=== PATIENT | female | born 1955 | race African-American/Black ===

== ENCOUNTER → 2017-08-24 | Outpatient (CLI) | payer OTHER, MEDICAID | END | disposition home or self-care (01) | LOC: KCIC DEXA 09:08 | DX: Z13.820 Encounter for screening for osteoporosis (principal); M85.88 Other specified disorders of bone density and structure, other site; Z78.0 Asymptomatic menopausal state | CPT/HCPCS: 77080 ==

== ENCOUNTER → 2018-04-04 | Outpatient (CLI) | payer OTHER, MEDICAID ==
[2016-11-10 11:00] VITALS: BP 126/74
[~2018-04-04] MED LIST: AMLO5TAB7 PO; CETI10TA22 PO; DULO60CA6 PO; ESTR1VAG VG; FERR325T58 PO; FEXO180T16 PO; FLUT9.9S NS; GABA-586 PO; GABA600T2 PO; HYDR-2762 PO; IRBE1TAB5 PO; MULT-208 PO; NAPR500T8 PO; NORT10CA PO; OMEP20TA8 PO; OXYC-323 PO; POTA10TA12 PO; PROP80CA3 PO; SIMV20TA3 PO; SUMA100T4 PO; TIZA4TAB PO; WARF1TAB74 PO
--- NOTE | 2018-04-04 14:04 | RAD ---
DATE: 04/04/2018 EXAM: MAMMO CRISTOPHER SCREENING BILATERAL HISTORY: Routine screening COMPARISON: 04/14/2017 This study was interpreted with the benefit of Computerized Aided Detection (CAD). Breast Density: SCATTERED The breast parenchyma shows scattered fibroglandular densities. Breast parenchyma level B. FINDINGS: 2-D and 3-D tomosynthesis imaging was performed in CC and MLO projections. No new or enlarging breast densities are seen. Minimal benign type calcification is present. No suspicious microcalcifications have developed. IMPRESSION: Stable mammograms without evidence of malignancy. BI-RADS CATEGORY: 2 BENIGN FINDING(S) RECOMMENDED FOLLOW-UP: 12M 12 MONTH FOLLOW-UP PQRS compliance statement: Patient information was entered into a reminder system with a target due date for the next mammogram. Mammography is a sensitive method for finding small breast cancers, but it does not detect them all and is not a substitute for careful clinical examination. A negative mammogram does not negate a clinically suspicious finding and should not result in delay in biopsying a clinically suspicious abnormality. "Our facility is accredited by the [employer] Mammography Program."
== END | disposition home or self-care (01) ==
LOC: MAMMO 09:57
PROVIDERS: ATTEND Physician Assistant Surgical
DX: Z12.31 Encounter for screening mammogram for malignant neoplasm of breast (principal)
CPT/HCPCS: 77063; 77067

== ENCOUNTER → 2019-04-08 | Outpatient (CLI) | payer OTHER ==
[2016-11-10 11:00] VITALS: BP 126/74
[~2019-04-08] MED LIST changes: +AMLO5TAB10 PO; -AMLO5TAB7 PO; -GABA-586 PO; +GABA300C18 PO; -GABA600T2 PO; +GABA600T7 PO; -HYDR-2762 PO; +HYDR-2765 PO; -OXYC-323 PO; +OXYC1TAB15 PO; -TIZA4TAB PO; +TIZA4TAB2 PO
--- NOTE | 2019-04-09 15:41 | RAD ---
DATE: 04/08/2019 EXAM: MAMMO CRISTOPHER SCREENING BILATERAL HISTORY: Routine screening COMPARISON: 04/14/2017 and 04/04/2018 mammographic exams This study was interpreted with the benefit of Computerized Aided Detection (CAD). Breast Density: SCATTERED The breast parenchyma shows scattered fibroglandular densities. Breast parenchyma level B. FINDINGS: No masses or distortion. No suspicious calcification. IMPRESSION: Stable BI-RADS CATEGORY: 1 NEGATIVE RECOMMENDED FOLLOW-UP: 12M 12 MONTH FOLLOW-UP PQRS compliance statement: Patient information was entered into a reminder system with a target due date for the next mammogram. Mammography is a sensitive method for finding small breast cancers, but it does not detect them all and is not a substitute for careful clinical examination. A negative mammogram does not negate a clinically suspicious finding and should not result in delay in biopsying a clinically suspicious abnormality. "Our facility is accredited by the [employer] Mammography [employer]."
== END | disposition home or self-care (01) ==
LOC: MAMMO 08:25
PROVIDERS: ATTEND Family Medicine
DX: Z12.31 Encounter for screening mammogram for malignant neoplasm of breast (principal)
CPT/HCPCS: 77063; 77067

== ENCOUNTER → 2020-04-09 | Outpatient (CLI) | payer MEDICARE, MEDICAID ==
[2016-11-10 11:00] VITALS: BP 126/74
[~2020-04-09] MED LIST changes: +AMLO-186 PO; -AMLO5TAB10 PO; -CETI10TA22 PO; +CETI10TA74 PO; -POTA10TA12 PO; +POTASSIUM CHLO10 ME1 PO; +SIMV20TA18 PO; -SIMV20TA3 PO; +WARF1TAB2 PO; -WARF1TAB74 PO
--- NOTE | 2020-04-10 13:16 | RAD ---
DATE: 04/09/2020 10:41 AM EXAM: MAMMO CRISTOPHER SCREENING BILATERAL HISTORY: Screening COMPARISON: 04/08/2019, 04/04/2018 Bilateral CC and MLO views of the breasts were performed. Bilateral breast tomosynthesis was performed in CC and MLO projections. This study was interpreted with the benefit of Computerized Aided Detection (CAD). FINDINGS: Breast Density: SCATTERED The breast parenchyma shows scattered fibroglandular densities. Breast parenchyma level B No suspicious masses, microcalcifications or architectural distortion is present to suggest malignancy in either breast. The visualized axillae are unremarkable. IMPRESSION: No mammographic evidence of malignancy. BI-RADS CATEGORY: 1 NEGATIVE RECOMMENDED FOLLOW-UP: 12M 12 MONTH FOLLOW-UP Annual screening mammography is recommended, unless clinically indicated sooner based on symptoms or change in physical exam. PQRS compliance statement: Patient information was entered into a reminder system with a target due date for the next mammogram. Mammography is a sensitive method for finding small breast cancers, but it does not detect them all and is not a substitute for careful clinical examination. A negative mammogram does not negate a clinically suspicious finding and should not result in delay in biopsying a clinically suspicious abnormality. "Our facility is accredited by the [employer] Mammography Program."
== END ==
LOC: MAMMO 10:35
PROVIDERS: ATTEND Family Medicine
DX: Z12.31 Encounter for screening mammogram for malignant neoplasm of breast (principal)
CPT/HCPCS: 77063; 77067

== ENCOUNTER → 2020-10-28 | Outpatient (CLI) | payer MEDICARE, MEDICAID ==
[2016-11-10 11:00] VITALS: BP 126/74
[~2020-10-28] MED LIST changes: +CALC-71 PO; +CHOL10004 PO; +LORA10TA3 PO; +MAGN250T10 PO; +OLME1TAB25 PO; +PANT40TA77 PO; +RIBO100T PO; +UBRO50TA PO
--- NOTE | 2020-10-28 13:38 | EKG ---
[facility] [address] [place] [address] Test Date: 2020-10-28 Test Time: 13:35:51 Pat Name: KRYSTAL NGUYEN Department: Room: Gender: F Photography Spotter: SRIDHAR : 1955 Requested By: NICOLE SANTOS Order Number: [id number] Reading MD: Vernon Russo MD Measurements Intervals [place] Rate: 68 P: 46 PA: 168 QRS: 0 QRSD: 90 T: 34 QT: 442 QTc: 470 Interpretive Statements SINUS RHYTHM Electronically Signed On 10-29-2020 10:46:28 CDT by Vernon Russo MD
[2020-10-28 15:01] LABS: BASO # 0.1 x10^3/uL (0.0-0.2); BASO % 1 % (0-3); EOS # 0.3 x10^3/uL (0.0-0.7); EOS % 3 % (0-3); HEMATOCRIT 39.3 % (36.0-47.0); LYMPH # 2.2 x10^3/uL (1.0-4.8); LYMPH % 23 % (24-48); MEAN CORPUSCULAR HEMOGLOBIN 31 pg (25-35); MEAN CORPUSCULAR HGB CONC 33 g/dL (31-37); MEAN CORPUSCULAR VOLUME 93 fL (79-100); MONO # 0.9 x10^3/uL (0.0-1.1); MONO % 9 % (0-9); NEUT # 6.3 x10^3/uL (1.8-7.7); NEUT % 65 % (31-73); PLATELET COUNT 373 x10^3/uL (140-400); RED BLOOD COUNT 4.24 x10^6/uL (3.50-5.40); RED CELL DISTRIBUTION WIDTH 13.6 % (11.5-14.5); WHITE BLOOD COUNT 9.7 x10^3/uL (4.0-11.0)
[2020-10-28 15:13] LABS: PROTHROMBIN TIME PATIENT 12.5 SEC (11.7-14.0)
[2020-10-28 15:27] LABS: ALBUMIN 3.8 g/dL (3.4-5.0); C-REACTIVE PROTEIN 2.6 mg/L (0-3.3); CALCIUM 9.6 mg/dL (8.5-10.1); GFR 67.1; POTASSIUM 3.7 mmol/L (3.5-5.1)
--- NOTE | 2020-10-28 16:23 | RAD ---
AP and Lateral Views of the Chest 10/28/2020 1:52 PM Indication: Reason: pre op. right hip total replacement scheduled 11/10. Instructions: / Histo ry: Comparison: None Findings: There are linear opacities in the left lung base suggestive of discoid atelectasis. No pneu mothorax is identified. Calcified granuloma noted in the right upper lung. Heart size is normal. No a cute osseous changes are identified. IMPRESSION: Mild left basilar atelectasis. Electronically signed by: Wilian Miller MD (10/28/2020 4:21 PM) [id number]
== END ==
LOC: SURGPAT 12:13
PROVIDERS: ATTEND Orthopaedic Surgery
DX: Z01.818 Encounter for other preprocedural examination (principal); M16.11 Unilateral primary osteoarthritis, right hip; J98.11 Atelectasis; Z96.641 Presence of right artificial hip joint
CPT/HCPCS: 36415; 71046; 80048; 82040; 82306; 83036; 85025; 85610; 85730; 86140; 87641; 93005

== ENCOUNTER → 2020-11-05 | Outpatient (CLI) | payer MEDICARE, MEDICAID ==
[2016-11-10 11:00] VITALS: BP 126/74
[~2020-11-05] MED LIST changes: +BACI3.5O8 OS; +MELO15TA23 PO; +WARF-31 PO
== END ==
LOC: LAB 09:38
PROVIDERS: ATTEND Orthopaedic Surgery
DX: Z01.812 Encounter for preprocedural laboratory examination (principal); Z20.822 Contact with and (suspected) exposure to COVID-19; M16.11 Unilateral primary osteoarthritis, right hip
CPT/HCPCS: U0003; U0005

== ENCOUNTER 2020-11-10 09:52 | Observation (INO) | payer MEDICARE, MEDICAID ==
[2020-10-28 13:16] VITALS: BP 145/92
[~2020-11-10] VITALS: Ht 160 cm; Wt 81.6 kg
[2020-11-10] VITALS (9 sets, daily range): BP systolic 117–160; BP diastolic 65–97
[~2020-11-10 09:52] MED LIST changes: +ACETAMINOPHEN 500 MG TABLET PO PRN; -BACI3.5O8 OS; +CLINDAMYCIN 900MG PREMIX 50 ML IV PRN; +DEXAMETHASONE SOD PHOS 4 MG/ML VIAL ONE; +GABAPENTIN 300 MG CAPSULE. PO PRN; +HYDROmorphone 2 MG/ML VIAL IVP PRN; +IV RINGERS,LACTATED 1000ML 1,000 ML IV SCH; +LIDOCAINE 2% PF 5 ML VIAL. ONE; -MELO15TA23 PO; +MORPHINE SULFATE 5 MG, KETOROLAC 30MG VIAL 30 MG, ROPIVacaine 0.5% PF 60 ML, EPINEPHrin... INT ART ONE; +ONDANSETRON PF 4 MG/2 ML VIAL. ONE; +PROCHLORPERAZINE 10 MG/2 ML VIAL. IVP PRN; +PROPOFOL 10 MG/ML (20ML) VIAL. IV ONE; +TRANEXAMIC ACID in NS IVPB 100 ML ONE; +TRANEXAMIC ACID in NS IVPB 50 ML INJ ONE; +VANCOMYCIN 1GM IVPB FOR OMNI 250 ML IV PRN; -WARF-31 PO; +fentaNYL PF VIAL 100 MCG/2 ML VIAL IVP PRN
[2020-11-10] MEDS ORDERED: MELO15TA23 PO (10:13)
[2020-11-10] MEDS ORDERED: WARF-31 PO (10:13)
[2020-11-10] MEDS ORDERED: BACI3.5O8 OS (10:14)
[2020-11-10] MEDS: MELOXICAM 7.5 MG TABLET PO PRN ×2 (10:31→18:07)
[2020-11-10 10:45] LABS: PROTHROMBIN TIME PATIENT 12.8 SEC (11.7-14.0)
[2020-11-10] MEDS ORDERED: MORPHINE SULFATE 2 MG/ML VIAL. IVP PRN (11:00)
[2020-11-10] MEDS ORDERED: UBROGEPANT 50 MG PO PRN (11:00)
[2020-11-10] MEDS ORDERED: NON FORMULARY ITEM (Meloxicam 1 TAB) PO SCH (11:00)
[2020-11-10] MEDS ORDERED: fentaNYL PF VIAL 100 MCG/2 ML VIAL IVP PRN (11:00)
[2020-11-10] MEDS: IV NORMAL SALINE 1000ML BAG 1,000 ML IV SCH (11:00)
[2020-11-10] MEDS ORDERED: CALCIUM CARBONATE 500 MG TAB.CHEW PO PRN (11:00)
[2020-11-10] MEDS ORDERED: diphenhydrAMINE 50 MG/ML VIAL IVP PRN (11:00)
[2020-11-10] MEDS ORDERED: DEXTROSE 50% 25 GM / 50ML DISP.SYRIN. IV PRN (11:00)
[2020-11-10] MEDS ORDERED: 0.9 % SODIUM CHLORIDE 10 ML DISP.SYRIN. IV PRN (11:00)
[2020-11-10] MEDS ORDERED: PROCHLORPERAZINE 5 MG TABLET. PO PRN (11:00)
[2020-11-10] MEDS ORDERED: ZOLPIDEM 5 MG TABLET. PO PRN (11:00)
[2020-11-10] MEDS ORDERED: VANCOMYCIN 1 GM VIAL. ONE (11:24)
[2020-11-10] MEDS: ONDANSETRON ODT 4 MG TAB.RAPDIS. PO SCH ×2 (12:00→18:00)
--- NOTE | 2020-11-10 12:45 | PREOP HP ---
DATE OF SERVICE: 11/10/2020 CHIEF COMPLAINT: Right hip pain. HISTORY OF PRESENT ILLNESS: The patient is a 65-year-old female who has had about a 3-year history of right hip pain, getting worse in the groin, severely affecting her activities of daily living. She has had some ongoing left knee pain as well status post knee arthroplasty and subsequent revision by Dr. Briggs and now the hip really severely affects her activities of daily living and particularly feels like she is compensating somewhat for the hip, making the already painful knee worse. PAST MEDICAL HISTORY: Significant for hypertension, hypercholesterolemia, osteoarthritis, headaches including migraine and osteopenia. PAST SURGICAL HISTORY: Left knee replacement and revision. FAMILY HISTORY: Several healthy siblings. Father is . Mother is alive and well. SOCIAL HISTORY: Denies smoking, alcohol or drug use. She is . Does have children. MEDICATIONS: List is reviewed. ALLERGIES: SHE LISTS AN ALLERGY TO PENICILLIN, WHICH GAVE HER SICK TO HER STOMACH. REVIEW OF SYSTEMS: Denies any chest pain, shortness of breath, focal weakness, numbness, tingling, recent febrile illness or other constitutional symptoms. Significant really for the ongoing worsening right hip pain and also ongoing left knee pain despite a previous total knee. IMPRESSION: 1. Primary osteoarthritis, right hip. 2. Left knee pain and history of total left knee replacement. TREATMENT PLAN: I went over with her and reviewed the risks, benefits, postoperative course of a total hip arthroplasty including the possibility of infection, nerve or blood vessel damage, leg length inequality, instability, medical or other anesthetic complications among others. All her questions were answered. She wishes to proceed with surgical evaluation and treatment, which will include [facility] observation to follow. GLORIA/YONATHAN/ASHLY DR: Lance TID: [id number]
[2020-11-10] MEDS ORDERED: ePHEDrine PF IN SALINE 50 MG/10 ML SYRINGE. IV ONE (12:53)
[2020-11-10] MEDS ORDERED: fentaNYL PF VIAL 100 MCG/2 ML VIAL ONE (13:09)
[2020-11-10] MEDS: GABAPENTIN 300 MG CAPSULE. PO SCH ×2 (14:00→20:51)
[2020-11-10] MEDS ORDERED: ALBUTEROL SULFATE 8GM INHALER. INH ONE (14:28)
[2020-11-10] MEDS ORDERED: SEVOFLURANE > 120 MINUTES. IH ONE (15:05)
[2020-11-10] MEDS ORDERED: MORPHINE SULFATE 2 MG/ML VIAL. ONE (15:27)
[2020-11-10] MEDS ORDERED: PROCHLORPERAZINE 10 MG/2 ML VIAL. ONE (15:27)
[2020-11-10] MEDS: MORPHINE SULFATE 2 MG/ML VIAL. IVP PRN ×2 (15:29→15:40)
[2020-11-10] MEDS ORDERED: HYDROmorphone 2 MG/ML VIAL ONE (15:45)
[2020-11-10] MEDS ORDERED: WARFARIN 7.5 MG TABLET. PO ONE (16:00)
--- NOTE | 2020-11-10 16:23 | NUR ---
Arrived to unit by bed from PACU. Alert and oriented x's 4. No c/o at this time. Right hip GAIL dressing d/i. Pedal pulses + bilaterally, warm touch and able to move lower extremities. IVF's intact and infusing. SCD's on bilaterally. Oriented to room and controls. Side rails up x's 2 with call light in reach. Daughter at bedside. Cont. monitor.
[2020-11-10] MEDS: FERROUS SULFATE 325 MG TABLET. PO SCH (17:47)
[2020-11-10] MEDS: ONDANSETRON PF 4 MG/2 ML VIAL. IVP SCH ×2 (17:48→18:00)
[2020-11-10] MEDS: oxyCODONE IR 5 MG TABLET PO PRN ×2 (17:53→22:01)
[2020-11-10] MEDS: SIMVASTATIN 20 MG TABLET PO SCH (20:51)
[2020-11-10] MEDS: tiZANidine 4 MG TABLET. PO SCH (20:51)
[2020-11-10] MEDS: NORTRIPTYLINE 25 MG CAPSULE PO SCH (20:51)
--- NOTE | 2020-11-10 22:12 | PDOC4 ---
Operative Note Operative Note Date of surgery: 11/10/2020 Preoperative diagnosis: Degenerative joint disease right hip Postoperative diagnosis: Same Operative procedure: Right total hip arthroplasty with anterior approach Surgeon Becky Object Oriented Developer: Ramirez brownlee Anesthesia: General Estimated blood loss: 250 cc Complications: None Drains: None Operative indications: Please see my orthopedic clinic note and dictated history and physical for detailed operative indications and note that we covered risks benefits postoperative course of the procedure. All her questions were answered and she wishes to proceed with surgical evaluation and treatment having given informed consent Operative text: Patient was identified procedure verified patient placed in the supine position on the [place] fracture table after adequate amounts of general ane sthesia were administered. All bony prominences were well-padded and right hip was prepped and draped in the standard sterile fashion. After timeout was performed patient procedure identified and verified an incision was made just distal to the anterior superior iliac spine running along the tensor fascia dat for a distance of about 4 inches. Fascia was incised tensor fascia dat was taken laterally and circumflex vessels were located and coagulated and the anterior capsule was exposed with the rectus femoris gently retracted medially along with the underlying fascia that was dissected free. Capsule was split in a T-shaped incision and superior aspect of the capsule was excised and further superior release was carried out with the hip in external rotation. Hip was returned to 40 degrees external rotation and a napkin ring cut was made with an Avenir Michael broach for reference napkin ring was removed and femoral head was removed and sized. Reaming was carried out from a size 43 to a size 49 with a size 50 Biomet G7 acetabular shell was placed in proper version under fluoroscopic guidance and placement of a single superiorly directed screw with excellent fixation to supplement the scratch fit. A 36 mm vitamin E liner was impacted into place. Femur was brought into maximum external rotation extension and adduction and release was carried out at the 11 o'clock position to free up the femur and retractors were placed medially and above the greater trochanter for maximum femoral exposure box osteotome was used along with the rattail rasp and successive size broaching up to a size 3 which provided excellent stability and fit within the canal. Calcar reaming was carried out and trial fitting with a +0 36 mm head to reproduce leg length and offset appropriately under fluoroscopic guidance. Trial components were removed and a size 3 standard offset collared Avenir stem was impacted into place with a +0 ceramic 36 mm head. Excellent stability and range of motion were noted and leg length reproduced as much as possible according to measurements from the contralateral side. Thorough irrigation carried out with dilute Betadine solution and then washed further with normal saline solution and pulse lavage. Intra-articular mixture was injected subperiosteally throughout the joint capsule and subcutaneous areas and 1 g vancomycin sprinkled throughout the joint capsule area. Fascia was closed with #1 PDS strata fix suture in a running fashion subcutaneous closure with buried Vicryl skin closure with subcuticular Monocryl and a lv dressing was applied. Patient was returned to recovery room in stable condition having tolerated the procedure well. Ramirez brownlee was present for the procedure and assisted in the patient positioning prepping draping retraction closure and dressings NICOLE SANTOS MD November 10, 2020 22:12
[2020-11-11] MEDS ORDERED: VANCOMYCIN 1 GM in IV NORMAL SALINE 250ML 250 ML IV ONE (01:00)
[2020-11-11 04:04] VITALS: BP 138/91
[2020-11-11] MEDS: oxyCODONE IR 5 MG TABLET PO PRN ×4 (04:09→20:47)
[2020-11-11 05:18] VITALS: BP 104/54
[2020-11-11 05:53] VITALS: BP 109/67
[2020-11-11] MEDS: ONDANSETRON ODT 4 MG TAB.RAPDIS. PO SCH ×2 (05:56)
[2020-11-11] MEDS: traMADol 50 MG TABLET PO SCH ×4 (05:56→23:32)
[2020-11-11] MEDS: PANTOPRAZOLE 40 MG TABLET.DR. PO SCH (05:57)
[2020-11-11] MEDS: ONDANSETRON PF 4 MG/2 ML VIAL. IVP SCH ×2 (05:57)
[2020-11-11] MEDS ORDERED: GABAPENTIN 100 MG CAPSULE. PO SCH (06:00)
[2020-11-11] MEDS ORDERED: MAGNESIUM HYDROXIDE 2,400 MG/30 ML ORAL.SUSP. PO PRN (06:00)
[2020-11-11] MEDS: ACETAMINOPHEN 500 MG TABLET PO SCH ×3 (07:37→20:47)
[2020-11-11 07:50] LABS: PROTHROMBIN TIME PATIENT 16.2 SEC (11.7-14.0)
[2020-11-11] MEDS: CETIRIZINE HCL 10 MG TABLET. PO SCH (08:11)
[2020-11-11] MEDS: LOSARTAN POTASSIUM 50 MG TABLET. PO SCH (08:11)
[2020-11-11] MEDS: GABAPENTIN 300 MG CAPSULE. PO SCH ×2 (08:11→15:18)
[2020-11-11] MEDS: hydroCHLOROthiazide 25 MG TABLET PO SCH (08:11)
[2020-11-11] MEDS: DULoxetine HCL 30 MG CAPSULE.DR PO SCH (08:11)
[2020-11-11] MEDS: amLODIPine BESYLATE 5 MG TABLET PO SCH (08:11)
[2020-11-11] MEDS: PROPRANOLOL ER 60 MG CAP.SA.24H. PO SCH (08:11)
[2020-11-11 08:12] LABS: HEMATOCRIT 32.4 % (36.0-47.0); HEMOGLOBIN 10.6 g/dL (12.0-15.5)
[2020-11-11] MEDS: MULTIVITAMIN with MINERAL TABLET. PO SCH (08:12)
[2020-11-11] MEDS: POTASSIUM CHLORIDE 10 MEQ TABLET.ER. PO SCH (08:12)
[2020-11-11] MEDS: MELOXICAM 7.5 MG TABLET PO SCH (08:13)
[2020-11-11] MEDS: FERROUS SULFATE 325 MG TABLET. PO SCH ×2 (08:13→17:00)
[2020-11-11] MEDS: SENNOSIDES/DOCUSATE 8.6/50MG TABLET. PO SCH (08:13)
[2020-11-11] MEDS: FLUTICASONE 50MCG/NASAL SPRAY 16GM BOTTLE. NS SCH (08:54)
[2020-11-11] MEDS ORDERED: NON FORMULARY ITEM (Multivitamin (Multi-Day Vitamins) 1 TAB) PO SCH (09:00)
--- NOTE | 2020-11-11 10:24 | NUR ---
Pharmacy Warfarin Dosing Note S:Pharmacy consulted to assist with anticoagulation therapy started 11/10/20 with target INR: 1.6 - 2.5 O:KRYSTAL NGUYEN is a 65 year old F with LARRY LABS: Last INR: 1.3 Last HGB: 10.6 Last HCT: 32.4 Last PLT: Last dose of 7.5 mg given on 11/10/20 at 1747 Previous Regimen: Vitamin K given: Drug Interaction Changes: Ongoing Drug Interactions: A:INR of 1.3 is below desired range. Target range for this patient is: 1.6 - 2.5 P: Warfarin dose: 5 mg Today at 1600 Bridge Therapy: None Next INR due 11/12/20. Pharmacy anticoagulation service will continue to follow. CHRISTINE MENA RPH, 11/11/20 [phone]
[2020-11-11] MEDS: IV NORMAL SALINE 1000ML BAG 1,000 ML IV SCH (11:00)
[2020-11-11] MEDS ORDERED: ONDANSETRON PF 4 MG/2 ML VIAL. IVP PRN (12:00)
[2020-11-11] MEDS ORDERED: ONDANSETRON ODT 4 MG TAB.RAPDIS. PO PRN (12:00)
[2020-11-11 12:30] VITALS: BP 106/67
--- NOTE | 2020-11-11 12:42 | NUR ---
SW following. Discussed with RN, pt from home alone, room air, regular diet. Therapy recommending home health. SW met with pt, pt agreeable to home health, would like [facility]. Lauren Newyb RN meeting with pt. Pt reported she has a walker, and has a ride home when it is time to discharge. KIM will continue to follow. Addendum: 11/11/20 at 1554 by MIL ALVAREZ Pt accepted with [facility]. Choice of vendor form completed.
--- NOTE | 2020-11-11 12:54 | PDOC ---
PROGRESS NOTES Date of Service DATE: 11/11/20 TIME: 12:52 Subjective Subjective Problems overnight: Says she is having less pain than before surgery and is pleased with her ability to get around. No current complaints pain well controlled Objective Vital Signs Vital Signs Date Time Temp Pulse Resp B/P (MAP) Pulse Ox O2 Delivery O2 Flow Rate FiO2 11/11/20 12:32 Room Air 11/11/20 05:56 18 96 11/11/20 05:53 98.3 71 109/67 (81) 98.3 11/10/20 15:29 10.0 Physical Exam Hip dressing clean dry intact leg lengths equal distal neurovascular status intact excellent range of motion and mobility Labs Laboratory Tests Test 11/10/20 10:25 11/11/20 06:25 Prothrombin Time 12.8 SEC (11.7-14.0) 16.2 SEC (11.7-14.0) Prothromb Time International Ratio 1.0 (0.8-1.1) 1.3 (0.8-1.1) Activated Partial Thromboplast Time 33 SEC (24-38) Hemoglobin 10.6 g/dL (12.0-15.5) Hematocrit 32.4 % (36.0-47.0) Mean Corpuscular Hemoglobin Concent 33 g/dL (31-37) Laboratory Tests Test 11/11/20 06:25 Hemoglobin 10.6 g/dL (12.0-15.5) Hematocrit 32.4 % (36.0-47.0) Mean Corpuscular Hemoglobin Concent 33 g/dL (31-37) Prothrombin Time 16.2 SEC (11.7-14.0) Prothromb Time International Ratio 1.3 (0.8-1.1) Imaging Intraoperative fluoroscopic views show excellent leg length offset and component placement Assessment Assessment POD#1 total hip arthroplasty Plan Plan of Care Continue weightbearing as tolerated mobilize with physical therapy Warfarin anticoagulation per [place] [facility] Likely home health on discharge Justicifation of Admission Dx: Justifications for Admission: Justification of Admission Dx: N/A NICOLE SANTOS MD November 11, 2020 12:54
[2020-11-11] MEDS ORDERED: BISACODYL 10 MG SUPP.RECT. PR PRN (16:00)
[2020-11-11] MEDS ORDERED: WARFARIN 5 MG TABLET. PO ONE (16:00)
[2020-11-11 18:00] VITALS: BP 94/60
[2020-11-11] MEDS: SIMVASTATIN 20 MG TABLET PO SCH (20:46)
[2020-11-11] MEDS: tiZANidine 4 MG TABLET. PO SCH (20:47)
[2020-11-11] MEDS: NORTRIPTYLINE 25 MG CAPSULE PO SCH (20:47)
[2020-11-12] MEDS: ACETAMINOPHEN 500 MG TABLET PO SCH ×3 (03:21→14:20)
[2020-11-12 05:53] VITALS: BP 96/70
[2020-11-12] MEDS: PANTOPRAZOLE 40 MG TABLET.DR. PO SCH (05:55)
[2020-11-12] MEDS: traMADol 50 MG TABLET PO SCH ×2 (05:56→12:18)
[2020-11-12] MEDS ORDERED: TRAM50TA PO (07:59)
[2020-11-12] MEDS ORDERED: OXYC5CAP PO (07:59)
--- NOTE | 2020-11-12 08:01 | SNU/HH DC ---
DISCHARGE WITH HOME HEALTH DISCHARGE INFORMATION: Discharge Date: November 12, 2020 Final Diagnosis: Status post total hip arthroplasty Condition on Discharge: Stable HOME HEALTH: Face to Face: I certify this patient is under my care and that I, or a nurse practitioner or physician's medical assistant ob gyn working with me, had a face to face encounter that meets the physician face to face encounter requirements with this patient on [11/12/20]. Detention For: Assess/Skilled Observatio RN For Eval/Treatment: Yes Physical Therapy For: Evalulation/Treatment Pt Meets Homebound Status: Limited distance walking POST DISCHARGE ORDERS: Activity Instructions for Disc: Activity as tolerated Weight Bearing Status after Di: As tolerated Bathing Instructions: Shower-keep dressing dry, No Tub Bath until see DIET AFTER DISCHARGE: Regular Wound/Incision Care: Ice to area for comfort, Keep wound elevated, Do not change dressing FOLLOW-UP: Follow up with: Dr. Pena or Dirk 2 weeks postop Warfarin Follow UP: [place] [facility] to direct dosage and testing TREATMENT/EQUIPMENT ORDERS: Adaptive Equipment Issued: None, Front wheeled walker CERTIFICATION STATEMENT: Certification Statement: Certification Statement: Based on the above finding, I certify that this patient is confined to the home and needs intermittent jail care, physical therapy and/or speech therapy, or continues to need occupational therapy.~ This patient is under my care, and I have initiated the establishment of the plan of care.~ This patient will be followed by myself or a community physician who will periodically review the plan of care. Home Meds Reported Medications Bacitracin (BACITRACIN) 3.5 Gm Oint...g., 1 NAYELY OS BID for mrsa pre op, #3.5 GM 11/10/20 Meloxicam (MELOXICAM) 15 Mg Tablet, 1 TAB PO ONCE for pre op for 30 Days, TAB 0 Refills 11/10/20 Warfarin Sodium (WARFARIN SODIUM) 5 Mg Tablet, 5 MG PO ONCE for pre op, #30 TAB 11/10/20 Ubrogepant (Ubrelvy) 50 Mg Tablet, 50 MG PO BID PRN for MIGRAINE HEADACHE, TAB 10/28/20 Calcium Carbonate/Vitamin D3 (CALCIUM 600 + VIT D CAPLET) 1 Each Tablet, 1 TAB PO DAILY for supplement for 30 Days, #30 TAB 0 Refills 10/28/20 Cholecalciferol (Vitamin D3) (Vitamin D3 ) 25 Mcg Tablet, 25 MCG PO DAILY for SUPPLEMENT, TAB 1,000 UNITS = 25 MCG 10/28/20 Riboflavin (RIBOFLAVIN) 100 Mg Tablet, 400 MG PO DAILY for vitamin, TAB 10/28/20 Magnesium Oxide (MAGNESIUM) 250 Mg Tablet, 1 TAB PO DAILY for supplement for 30 Days, #30 TAB 0 Refills 10/28/20 Pantoprazole Sodium (PANTOPRAZOLE SODIUM ) 40 Mg Tablet.dr, 20 MG PO DAILYAC for GERD, TAB 10/28/20 Olmesartan/Hydrochlorothiazide (BENICAR HCT 40-25 MG TABLET) 1 Each Tablet, 1 TAB PO DAILY for htn for 30 Days, #30 TAB 0 Refills 10/28/20 Multivitamin (MULTI-DAY VITAMINS) 1 Each Tablet, 1 TAB PO DAILY for vitamin supplement, #30 TAB LAST DOSE GIVEN: DATE:09-18-15 TIME:8:30 a.m. NEXT DOSE DUE: DATE:09-19-15 TIME:8:30 a.m. 11/13/14 Fexofenadine Hcl (FEXOFENADINE HCL) 180 Mg Tablet, 1 TAB PO DAILY for allergies , #30 TAB 5 Refills Not taken while in hosp. May resume at home as instructed 11/13/14 Amlodipine Besylate (AMLODIPINE BESYLATE) 5 Mg Tablet, 1 TAB PO DAILY for hypertension, #30 TAB 5 Refills Not given due to low blood pressure. Check blood pressure before taking if systolic below 100 do not take 11/13/14 Gabapentin (GABAPENTIN) 600 Mg Tablet, 0.5 TAB PO TID for nerve pain, #90 TAB 3 Refills LAST DOSE GIVEN: DATE:09-17-15 TIME:9:00 p.m. NEXT DOSE DUE: DATE:09-18-15 TIME:9:00 p.m. 11/13/14 Potassium Chloride (POTASSIUM CHLORIDE) 10 Meq Tablet.er, 1 TAB PO DAILY for potassium supplement, #90 TAB 1 Refill LAST DOSE GIVEN: DATE:09-18-15 TIME:8:30 a.m. NEXT DOSE DUE: DATE:09-19-15 TIME:8:30 a.m. 11/13/14 Fluticasone Propionate (Flonase Allergy Relief) 9.9 Ml Gonzales.susp, 9.9 ML NS DAILY for allergies Not taken while in hosp. May resume at home as instructed 11/13/14 Duloxetine Hcl (CYMBALTA) 60 Mg Capsule.dr, 1 CAP PO DAILY for antidepressant, #90 CAP 3 Refills LAST DOSE GIVEN: DATE:09-18-15 TIME:8:30 a.m. NEXT DOSE DUE: DATE:09-18-14 TIME:8:30 a.m. 11/13/14 Simvastatin (SIMVASTATIN) 20 Mg Tablet, 2 TAB PO QHS for high cholesterol, #30 TAB 5 Refills LAST DOSE GIVEN: DATE:09-17-15 TIME:9:00 p.m. NEXT DOSE DUE: DATE:09-19-15 TIME:9:00 p.m. 11/13/14 Tizanidine Hcl (TIZANIDINE HCL) 4 Mg Tablet, 1 TAB PO QHS for muscle relaxer, #30 TAB Not given while in hosp. May resume at home as directed 11/13/14 Nortriptyline Hcl (NORTRIPTYLINE HCL) 10 Mg Capsule, 75 MG PO HS for antidepressant, CAP LAST DOSE GIVEN: DATE:09-17-15 TIME:9:00 p.m. NEXT DOSE DUE: DATE:09-18-15 TIME:9:00 p.m. 11/13/14 Propranolol Hcl (PROPRANOLOL HCL) 80 Mg Cap.sa.24h, 120 MG PO DAILY for hypertension, CAP.SR Not given today due to low blood pressure. Check blood pressure before taking if systolic below 100 do not give. 11/13/14 NICOLE PENA MD November 12, 2020 08:01
[2020-11-12 08:16] LABS: PROTHROMBIN TIME PATIENT 22.5 SEC (11.7-14.0)
[2020-11-12] MEDS: FERROUS SULFATE 325 MG TABLET. PO SCH (08:17)
[2020-11-12] MEDS: MULTIVITAMIN with MINERAL TABLET. PO SCH (08:17)
[2020-11-12] MEDS: DULoxetine HCL 30 MG CAPSULE.DR PO SCH (08:17)
[2020-11-12] MEDS: CETIRIZINE HCL 10 MG TABLET. PO SCH (08:17)
[2020-11-12] MEDS: SENNOSIDES/DOCUSATE 8.6/50MG TABLET. PO SCH (08:17)
[2020-11-12] MEDS: POTASSIUM CHLORIDE 10 MEQ TABLET.ER. PO SCH (08:18)
[2020-11-12] MEDS: MELOXICAM 7.5 MG TABLET PO SCH (08:18)
[2020-11-12] MEDS: FLUTICASONE 50MCG/NASAL SPRAY 16GM BOTTLE. NS SCH (08:24)
[2020-11-12 09:00] VITALS: BP 95/62
[2020-11-12] MEDS: amLODIPine BESYLATE 5 MG TABLET PO SCH (09:00)
[2020-11-12] MEDS: hydroCHLOROthiazide 25 MG TABLET PO SCH (09:00)
[2020-11-12] MEDS: LOSARTAN POTASSIUM 50 MG TABLET. PO SCH (09:00)
[2020-11-12] MEDS: PROPRANOLOL ER 60 MG CAP.SA.24H. PO SCH (09:00)
[2020-11-12] MEDS: oxyCODONE IR 5 MG TABLET PO PRN ×2 (09:42→14:20)
--- NOTE | 2020-11-12 10:35 | NUR ---
Pharmacy Warfarin Dosing Note S:Pharmacy consulted to assist with anticoagulation therapy started 11/10/20 with target INR: 1.6 - 2.5 O:KRYSTAL NGUYEN is a 65 year old F with LARRY LABS: Last INR: 2.0 Last HGB: 10.6 Last HCT: 32.4 Last PLT: Last dose of 5 mg given on 11/11/20 at 1701 Previous Regimen: Vitamin K given: Drug Interaction Changes: Ongoing Drug Interactions: A:INR of 2.0 is within desired range. Target range for this patient is: 1.6 - 2.5 P: Warfarin dose: 2 mg Prior to Discharge Bridge Therapy: None Next INR due Monday, November 16 with Home health Pharmacy anticoagulation service will continue to follow. [facility]ERHANE [facility], 11/12/20 [id number]
[2020-11-12] MEDS: IV NORMAL SALINE 1000ML BAG 1,000 ML IV SCH (11:00)
[2020-11-12 11:32] LABS: HEMATOCRIT 31.1 % (36.0-47.0); HEMOGLOBIN 10.1 g/dL (12.0-15.5)
--- NOTE | 2020-11-12 11:55 | NUR ---
SW following. Discussed with RN, discharge paperwork for home with home health. Lauren Newby RN notified. Discharge order not in yet.
[2020-11-12] MEDS ORDERED: WARFARIN 2 MG TABLET. PO ONE (14:00)
--- NOTE | 2020-11-12 16:05 | NUR ---
Discharge instructions given with prescriptions. Answered questions and concerns. Verbalized understanding. Pt discharged home with home health. Escorted out by w/c and accompanied by son.
--- NOTE | 2020-11-14 08:14 | DS ---
DATE OF DISCHARGE: 11/12/2020 PRINCIPAL DIAGNOSIS: Degenerative joint disease, right hip. PROCEDURE: Right total hip arthroplasty, anterior. DISPOSITION: Home with home health.. DISPOSITION MEDICATIONS: Oxycodone 5 mg p.o. q.4 hours p.r.n. severe pain, tramadol 50 mg p.o. q.4 hours p.r.n. moderate pain, warfarin as directed by anticoagulation clinic, resume home medications. INSTRUCTION: Activity is weightbearing as tolerated, avoiding extremes of range of motion of the operative hip. Maintain GAIL dressing, call if saturated. BRIEF DESCRIPTION OF HOSPITAL COURSE: The patient underwent uncomplicated right total hip arthroplasty and got good initial postoperative pain relief and negotiated ambulation and transfers quite well with physical therapy and was discharged home with home health in stable condition. TRICIA DR: Lance TID: [id number]
== END 2020-11-12 16:05 | disposition home health service (06) ==
LOC: SURG 09:52 → 4 SOUTHEST 15:35
PROVIDERS: ADMIT Orthopaedic Surgery; ATTEND Orthopaedic Surgery
DX: M16.11 Unilateral primary osteoarthritis, right hip (principal); M25.562 Pain in left knee; I10 Essential (primary) hypertension; M85.80 Other specified disorders of bone density and structure, unspecified site; G43.909 Migraine, unspecified, not intractable, without status migrainosus; E78.00 Pure hypercholesterolemia, unspecified; Z96.641 Presence of right artificial hip joint; Z96.652 Presence of left artificial knee joint; Z79.899 Other long term (current) drug therapy; Z98.890 Other specified postprocedural states
CPT/HCPCS: 27130; 36415; 85014; 85018; 85610; 85730; 86850; 86900; 86901; 88304; 88311; 96365; 96366; 96367; 96375; 97116; 97150; 97162; 97166; 97530; 97535; A4213; A4930; A6223; A6258; A6402; A6550; C1755; C1776; G0378; G0379; J0171; J0690; J0780; J1100; J1170; J1885; J2270; J2405; J2704; J2795; J3010; J3370; J7050; 76000; A4223; J3490; J7030

== ENCOUNTER → 2021-04-12 | Outpatient (CLI) | payer MEDICARE, MEDICAID ==
[~2021-04-12] MED LIST changes: -ACETAMINOPHEN 500 MG TABLET PO PRN; +BACI3.5O8 OS; -CLINDAMYCIN 900MG PREMIX 50 ML IV PRN; -DEXAMETHASONE SOD PHOS 4 MG/ML VIAL ONE; -DULO60CA6 PO; +DULO60CA7 PO; -GABAPENTIN 300 MG CAPSULE. PO PRN; -HYDROmorphone 2 MG/ML VIAL IVP PRN; -IV RINGERS,LACTATED 1000ML 1,000 ML IV SCH; -LIDOCAINE 2% PF 5 ML VIAL. ONE; +MELO15TA23 PO; -MORPHINE SULFATE 5 MG, KETOROLAC 30MG VIAL 30 MG, ROPIVacaine 0.5% PF 60 ML, EPINEPHrin... INT ART ONE; -ONDANSETRON PF 4 MG/2 ML VIAL. ONE; +OXYC5CAP PO; -PROCHLORPERAZINE 10 MG/2 ML VIAL. IVP PRN; -PROPOFOL 10 MG/ML (20ML) VIAL. IV ONE; +TRAM50TA PO; -TRANEXAMIC ACID in NS IVPB 100 ML ONE; -TRANEXAMIC ACID in NS IVPB 50 ML INJ ONE; -VANCOMYCIN 1GM IVPB FOR OMNI 250 ML IV PRN; +WARF-31 PO; -fentaNYL PF VIAL 100 MCG/2 ML VIAL IVP PRN
--- NOTE | 2021-04-12 15:51 | RAD ---
Bilateral digital screening 2-D and 3-D (digital breast tomosynthesis) mammogram: Reason for examination: Routine screening. Comparison: Mammograms from 04/09/2020, 04/08/2019, and 04/04/2018. Interpretation was made with the benefit of CAD. FINDINGS: Breast density: Category B. There are scattered areas of fibroglandular density. No suspicious breast mass, malignant appearing calcifications, or architectural distortion is seen. T here is a tiny oval circumscribed mass in the 2:00 position of the left breast 3 cm from the nipple w hich is unchanged since 2018 and is consistent with a benign finding. IMPRESSION: No evidence of malignancy. Assessment: BI-RADS 2. Benign finding. Recommendation: Routine screening mammograms. The patient will receive a letter with the results in the mail. Patient information will be entered i nto the mammography reminder system with a target recall date for the next mammogram. A reminder ebony er will be generated. Electronically signed by: Tegan Mosley MD (04/12/2021 3:48 PM) [id number]
== END ==
LOC: MAMMO 10:27
PROVIDERS: ATTEND Family Medicine
DX: Z12.31 Encounter for screening mammogram for malignant neoplasm of breast (principal)
CPT/HCPCS: 77063; 77067